=== PATIENT | female | born 1965 | race Two or more races ===

== ENCOUNTER 2022-10-09 14:29 | Emergency (ER) | payer OTHER ==
[~2022-10-09] VITALS: Ht 157.5 cm; Wt 72.2 kg
[2022-10-09 16:01] LABS: Urine Bacteria NONE SEEN /hpf (None Seen); Urine Blood Negative /uL (Negative); Urine Mucus FEW (None Seen); Urine WBC 3 /hpf (0 - 5)
[2022-10-09] MEDS ORDERED: CARB6.5S44 OT (17:34)
[2022-10-09] MEDS ORDERED: DICL50TA2 PO (17:34)
[2022-10-09] MEDS ORDERED: METO-281 PO (17:34)
[2022-10-09] MEDS ORDERED: NITR-87 PO (17:34)
[2022-10-09 17:55] VITALS: BP 135/77
== END 2022-10-09 17:55 | disposition home or self-care (01) ==
LOC: ER 14:29
DX: H92.01 Otalgia, right ear (principal); H61.21 Impacted cerumen, right ear; N39.0 Urinary tract infection, site not specified; R29.818 Other symptoms and signs involving the nervous system
CPT/HCPCS: 81001

== ENCOUNTER 2024-02-20 18:28 | Inpatient (IN) | payer MEDICAID, OTHER ==
[~2024-02-20] VITALS: Ht 157.5 cm; Wt 74.9 kg
[~2024-02-20 18:28] MED LIST: CARB6.5S44 OT; DICL50TA2 PO; METO-281 PO; NITR-87 PO
[2024-02-20] MEDS: PANTOPRAZOLE 40 MG/10 ML VIAL INJ IV ONE (19:40)
[2024-02-20] MEDS: ONDANSETRON HCL 4 MG/2 ML VIAL IV ONE (19:40)
[2024-02-20 19:48] LABS: Chloride 101 mmol/L (98-107); Potassium 3.7 mmol/L (3.5-5.1); Sodium 135 mmol/L (136-145)
[2024-02-20 19:49] LABS: Anion Gap 7 (5-15); Calcium 9.4 mg/dL (8.7-10.4); Carbon Dioxide 27 mmol/L (20-30)
[2024-02-20 19:54] LABS: BUN/Creatinine Ratio 15.1 (10.0-20.0); Blood Urea Nitrogen 11 mg/dL (9-23); Glucose 158 mg/dL (74-106); Lipase 39 U/L (12-53)
[2024-02-20 19:56] LABS: Basophils # (auto) 0 10 ^3/uL (0-0.2); Basophils % (auto) 0.2 % (0.0-2.0); Eosinophils # (auto) 0 10 ^3/uL (0-0.8); Eosinophils % (auto) 0.3 % (0.0-7.0); Hematocrit 41.2 % (36.0-46.0); Hemoglobin 14.1 g/dL (12.2-16.2); Lymphocytes # (auto) 1.3 10 ^3/uL (0.4-5.4); Lymphocytes % (auto) 15.6 % (10.0-50.0); Mean Corpuscular Hemoglobin 30.7 pg (28.0-32.0); Mean Corpuscular Hgb Conc. 34.2 g/dL (32.0-36.0); Mean Corpuscular Volume 89.8 fL (80.0-100.0); Monocytes # (auto) 0.6 10 ^3/uL (0-1.3); Monocytes % (auto) 6.9 % (0.0-12.0); Neutrophils # (auto) 6.5 10 ^3/uL (1.6-8.6); Nucleated Red Blood Cells % 0.1 %; Red Blood Cells 4.59 10^6/uL (4.0-5.20); Red Cell Distribution Width 13.5 % (11.8-14.3); White Blood Cell 8.5 10^3/uL (4.4-10.8)
[2024-02-20 20:02] LABS: Urine Bacteria FEW /hpf (None Seen); Urine Blood Negative /uL (Negative); Urine Clarity Clear (Clear); Urine Color Yellow (Yellow); Urine Mucus FEW (None Seen); Urine Protein, UAD TRACE (Negative); Urine Specific Gravity 1.023 (1.001-1.035); Urine Urobilinogen Normal (Negative); Urine WBC 2 /hpf (0 - 5)
[2024-02-20] MEDS: metroNIDAZOLE 500MG/100ML 100 ML IV ONE (20:20)
[2024-02-20] MEDS: CIPROFLOXACIN 400MG/200ML 200 ML IV ONE (20:25)
[2024-02-20] MEDS: ACETAMINOPHEN 325 MG TAB PO ONE (20:30)
[2024-02-20] MEDS ORDERED: MORPHINE SULFATE INJ 2 MG/ml SYRG IV PRN (21:30)
[2024-02-20] MEDS ORDERED: NITROGLYCERIN 0.4 MG SL TAB SL PRN (21:30)
[2024-02-20] MEDS ORDERED: TEMAZEPAM 15 MG CAP PO PRN (21:30)
[2024-02-20] MEDS: SODIUM CHLORIDE 0.9% 1,000 ML IV SCH (21:30)
[2024-02-20] MEDS ORDERED: ACETAMINOPHEN 325 MG TAB PO PRN (21:30)
[2024-02-20] MEDS: metroNIDAZOLE 500MG/100ML 100 ML IV SCH (22:00)
[2024-02-20] MEDS ORDERED: HYDR12.59 PO (22:03)
[2024-02-20] MEDS ORDERED: GABA-1250 PO (22:03)
[2024-02-20] MEDS: GABAPENTIN 300 MG CAP PO SCH (22:28)
[2024-02-21] VITALS (7 sets, daily range): BP systolic 99–117; BP diastolic 51–58; PULSE 66–82; RESP 15–18; TEMP 97.6–98.5; O2SAT 91–95
[2024-02-21 06:07] LABS: Basophils # (auto) 0 10 ^3/uL (0-0.2); Basophils % (auto) 0.1 % (0.0-2.0); Eosinophils # (auto) 0.1 10 ^3/uL (0-0.8); Eosinophils % (auto) 0.8 % (0.0-7.0); Hematocrit 37.4 % (36.0-46.0); Hemoglobin 12.4 g/dL (12.2-16.2); Lymphocytes # (auto) 1.7 10 ^3/uL (0.4-5.4); Lymphocytes % (auto) 22.7 % (10.0-50.0); Mean Corpuscular Hemoglobin 29.9 pg (28.0-32.0); Mean Corpuscular Hgb Conc. 33.2 g/dL (32.0-36.0); Monocytes # (auto) 0.6 10 ^3/uL (0-1.3); Monocytes % (auto) 8.7 % (0.0-12.0); Neutrophils % (auto) 67.7 % (37.0-80.0); Red Blood Cells 4.16 10^6/uL (4.0-5.20); Red Cell Distribution Width 13.6 % (11.8-14.3); White Blood Cell 7.3 10^3/uL (4.4-10.8)
[2024-02-21 06:31] LABS: Alanine Aminotransferase 17 U/L (7-40); Alkaline Phosphatase 44 U/L (46-116); Anion Gap 7 (5-15); BUN/Creatinine Ratio 13.2 (10.0-20.0); Blood Urea Nitrogen 9 mg/dL (9-23); Calcium 8.5 mg/dL (8.5-10.1); Carbon Dioxide 26 mmol/L (20-30); Chloride 107 mmol/L (98-107); Glucose 105 mg/dL (74-106); Potassium 3.9 mmol/L (3.5-5.1); Sodium 140 mmol/L (136-145)
[2024-02-21 06:32] LABS: Albumin 3.8 g/dL (3.2-4.8); Aspartate Aminotransferase 19 U/L (13-40)
[2024-02-21 06:33] LABS: Bilirubin, Total 0.4 mg/dL (0.2-1.0); Total Protein 6.3 g/dL (5.7-8.2)
[2024-02-21] MEDS: ACETAMINOPHEN 325 MG TAB PO ONE (10:00)
[2024-02-21] MEDS: KETOROLAC TROMETH 30 MG/ML 1ML VIAL IV ONE (10:00)
[2024-02-21] MEDS: ONDANSETRON HCL 4 MG/2 ML VIAL IV PRN (11:36)
[2024-02-21] MEDS: levoFLOXacin 500MG 100 ML IV SCH (11:36)
[2024-02-21] MEDS: MORPHINE SULFATE INJ 2 MG/ml SYRG IV PRN (11:37)
[2024-02-21] MEDS: hydroCHLOROthiazide 25 MG TAB PO SCH (11:40)
[2024-02-21] MEDS ORDERED: FAMO-12 PO (15:54)
[2024-02-21] MEDS: HYDROcodone-ACET 5/325MG TAB PO PRN (18:24)
[2024-02-22] VITALS (7 sets, daily range): BP systolic 99–113; BP diastolic 53–65; PULSE 63–75; RESP 16–20; TEMP 97.4–98.8; O2SAT 94–97
[2024-02-23 05:00] VITALS: BP 97/58; PULSE 67; RESP 18; TEMP 97.9; O2SAT 95
[2024-02-23 08:48] VITALS: BP 121/62; PULSE 63; RESP 16; TEMP 98.4; O2SAT 94
[2024-02-23 13:00] VITALS: BP 122/65; PULSE 66; RESP 16; TEMP 98.3; O2SAT 93
[2024-02-23 16:59] VITALS: BP 115/60; PULSE 72; RESP 18; TEMP 98; O2SAT 92
[2024-02-23 20:00] VITALS: BP 117/71; PULSE 78; RESP 17; TEMP 98.1; O2SAT 93
[2024-02-23 21:00] VITALS: BP 117/71; PULSE 78; RESP 17; TEMP 98.1; O2SAT 93
[2024-02-24 01:00] VITALS: BP 115/62; PULSE 70; RESP 17; TEMP 98.2; O2SAT 93
[2024-02-24 05:53] LABS: Basophils # (auto) 0 10 ^3/uL (0-0.2); Basophils % (auto) 0.6 % (0.0-2.0); Eosinophils # (auto) 0.1 10 ^3/uL (0-0.8); Eosinophils % (auto) 1.5 % (0.0-7.0); Hematocrit 39.6 % (36.0-46.0); Hemoglobin 13.5 g/dL (12.2-16.2); Lymphocytes # (auto) 2.3 10 ^3/uL (0.4-5.4); Lymphocytes % (auto) 40.7 % (10.0-50.0); Mean Corpuscular Hemoglobin 30.6 pg (28.0-32.0); Mean Corpuscular Volume 89.7 fL (80.0-100.0); Monocytes # (auto) 0.4 10 ^3/uL (0-1.3); Monocytes % (auto) 6.7 % (0.0-12.0); Neutrophils # (auto) 2.9 10 ^3/uL (1.6-8.6); Neutrophils % (auto) 50.5 % (37.0-80.0); Nucleated Red Blood Cells % 0.1 %; Red Blood Cells 4.41 10^6/uL (4.0-5.20); White Blood Cell 5.7 10^3/uL (4.4-10.8)
[2024-02-24 06:00] LABS: Chloride 107 mmol/L (98-107); Potassium 4.1 mmol/L (3.5-5.1); Sodium 140 mmol/L (136-145)
[2024-02-24 06:01] LABS: Anion Gap 8 (5-15); Calcium 9.5 mg/dL (8.5-10.1); Carbon Dioxide 25 mmol/L (20-30)
[2024-02-24 06:06] LABS: BUN/Creatinine Ratio 11.6 (10.0-20.0); Blood Urea Nitrogen 8 mg/dL (9-23); Glucose 100 mg/dL (74-106)
[2024-02-24 08:47] VITALS: BP 123/72; PULSE 71; RESP 19; TEMP 97.8; O2SAT 94
[2024-02-24] MEDS ORDERED: DOCU-94 PO (10:51)
[2024-02-24] MEDS ORDERED: METR-344 PO (10:51)
[2024-02-24] MEDS ORDERED: LEVO500T91 PO (10:51)
[2024-02-24 12:42] VITALS: BP 115/64; PULSE 82; RESP 19; TEMP 98.5; O2SAT 97
[2024-02-24 13:31] VITALS: BP 115/64; PULSE 82; RESP 19; TEMP 98.5; O2SAT 97
== END 2024-02-24 14:39 | disposition home or self-care (01) | DRG 244 ==
LOC: ER 18:28 → TELE 22:02 → TELE-CENTR 02-21 12:56 → CENTRAL 02-21 23:39
PROVIDERS: ADMIT Internal Medicine; ATTEND Internal Medicine
DX: K57.32 Diverticulitis of large intestine without perforation or abscess without bleeding (principal); E11.65 Type 2 diabetes mellitus with hyperglycemia; K21.9 Gastro-esophageal reflux disease without esophagitis; I10 Essential (primary) hypertension; K44.9 Diaphragmatic hernia without obstruction or gangrene; Z98.891 History of uterine scar from previous surgery; Z79.899 Other long term (current) drug therapy
CPT/HCPCS: 36415; 74176; 80048; 80053; 81001; 83036; 83690; 85025; 96365; 96368; 96375; C9113; G0378; J1956; J2405; J3490

== ENCOUNTER 2025-09-22 11:33 | Emergency (ER) | payer MEDICAID ==
[~2025-09-22] VITALS: Ht 157.5 cm; Wt 76.1 kg
[~2025-09-22 11:33] MED LIST changes: -CARB6.5S44 OT; -DICL50TA2 PO; +DOCU-94 PO; +LEVO500T91 PO; -METO-281 PO; +METR-344 PO; -NITR-87 PO
--- NOTE | 2025-09-22 12:41 | ED.PDOC ---
History of Present Illness(SKN HPI Comments 59-year-old female presents to the ER with a prior MHx of arthritis in the chief complaint of an allergic reaction. The patient reports on having had a headache for the past few days associated with a a rash on the face, chest and back due from a possible allergic reaction which started yesterday associated with the itchiness. The patient notes on being lose to shrimp and lobster but states on not having any recently. The patient notes on having right shoulder pain. Denies any other symptoms at this time. Chief Complaint: Allergic Reaction Time Seen by MD: 12:30 History of Present Illness: Nurses Notes, Medications, Allergies Allergies: Coded Allergies: Shellfish Allergy (Verified Allergy, Unknown, 02/21/24) Home Meds Active Scripts Cetirizine Hcl (Cetirizine Hcl) 5 Mg Tab, 10 MG PO DAILY for 10 Days, #20 TAB 0 Refills Prov:STEFFI IYER NP 09/22/25 Diphenhydramine Hcl (BENADRYL CAPSULE) 25 Mg Cp, 25 MG PO Q8HP PRN for 10 Days, #30 CAP 0 Refills Prov:STEFFI IYER NP 09/22/25 Methylprednisolone (Medrol Dosepak) 4 Mg Santiago, 4 MG PO UD for 7 Days, #21 TAB 0 Refills UAD Prov:STEFFI IYER NP 09/22/25 Levofloxacin Hemihydrate (LEVAQUIN 500 MG) 500 Mg Tab, 1 TAB PO DAILY, #7 TAB Prov:ELVIS DAWSON MD 02/24/24 Levofloxacin Hemihydrate (LEVAQUIN 500 MG) 500 Mg Tab, 1 TAB.CHEW PO DAILY, #7 TAB Prov:ELVIS DAWSON MD 02/24/24 Metronidazole (Flagyl) 500 Mg Tab, 500 MG PO TID for 7 Days, #21 TAB Prov:ELVIS DAWSON MD 02/24/24 Docusate Sodium (Colace) 100 Mg Cap, 1 CAP PO BID, #60 CAP 2 Refills Prov:ELVIS DAWSON MD 02/24/24 Information Source: Patient Mode of Arrival: Ambulatory Severity: Moderate Timing: Days Duration: Since onset, Days Prehospital treatment: None Location: Back, Chest, Face Mechanism: Spontaneous Onset Developed: Rash Object: None Condition of Object: None Wound Type: None History of: None Associated Signs and Symptoms: None Past Medical History PAST MEDICAL HISTORY: Arthritis, DM, GERD Surgical History: BTL, UTILIZATION REVIEW SPECIALIST History: No Pertinent UTILIZATION REVIEW SPECIALIST History Family History Family History: Reviewed,noncontributory to illness, Unknown Social History Smoker: Non-Smoker Alcohol: Denies ETOH Use Drugs: Denies Drug Use Lives In: Home Constitutional: denies: chills, diaphoresis, fatigue, fever, malaise, sweats, weakness, others EENTM: denies: blurred vision, double vision, ear bleeding, ear discharge, ear drainage, ear pain, ear ringing, eye pain, eye redness, hearing loss, mouth pain, mouth swelling, nasal discharge, nose bleeding, nose congestion, nose pain, photophobia, tearing, throat pain, throat swelling, voice changes, others Respiratory: denies: cough, hemoptysis, orthopnea, SOB at rest, shortness of breath, SOB with excertion, stridor, wheezing, others Cardiovascular: denies: chest pain, dizzy spells, diaphoresis, Dyspnea on exertion, edema, irregular heart beat, left arm pain, lightheadedness, palpitations, PND, syncope, others Gastrointestinal: denies: abdomen distended, abdominal pain, blood streaked bowels, constipated, diarrhea, dysphagia, difficulty swallowing, hematemesis, melena, nausea, poor appetite, poor fluid intake, rectal bleeding, rectal pain, vomiting, others Genitourinary: denies: abnormal vagina bleeding, burning, dyspareunia, dysuria, flank pain, frequency, hematuria, incontinence, pain, , vagina discharge, urgency, others Neurological: reports: headache; denies: dizziness, fainting, left sided numbness, left sided weakness, numbness, paresthesia, pre-existing deficit, right sided numbness, right sided weakness, seizure, speech problems, tingling, tremors, weakness, others Musculoskeletal: denies: back pain, gout, joint pain, joint swelling, muscle pain, muscle stiffness, neck pain, others Integumetry: reports: rash; denies: bruises, change in color, change in hair/nails, dryness, laceration, lesions, lumps, wounds, others Allergic/Immunocompromised: denies: Difficulty Healing, Frequent Infections, Hives, Itching, others Hematologic/Lymphatic: denies: anemia, blood clots, easy bleeding, easy bruising, swollen glands, others Endocrine: denies: excessive hunger, excessive sweating, excessive thirst, excessive urination, flushing, intolerance to cold, intolerance to heat, unexplained weight gain, unexplained weight loss, others Psychiatric: denies: anxiety, bipolar disorder, depression, hopeless, panic disorder, schizophrenia, sleepless, suicidal, others All Other Systems: Reviewed and Negative Physical Exam Exam Comments Mild scattered hives to the anterior chest wall General Appearance: No Apparent Distress, Normal HEENT: Normal ENT Inspection, Pharynx Normal, TMs Normal Neck: Full Range of Motion, Non-Tender, Normal, Normal Inspection Respiratory: Chest Non-Tender, Lungs Clear, No Accessory Muscle Use, No Respiratory Distress, Normal Breath Sounds Cardiovascular: No Edema, No JVD, No Murmur, No Gallop, Normal Peripheral Pulses, Regular Rate/Rhythm Breast Exam: Deferred Gastrointestinal: No Organomegaly, Non Tender, No Pulsatile Mass, Normal Bowel Sounds, Soft Genitalia: Deferred Pelvic: Deferred Rectal: Deferred Extremities: No calf tenderness, Normal capillary refill, Normal inspection, Normal range of motion, Non-tender, No pedal edema Musculoskeletal : Apperance: Normal Neurologic: Alert, jacquard lace weaver II-XII nml as Tested, No Motor Deficits, Normal Affect, Normal Mood, No Sensory Deficits Cerebellar Function: Normal Reflexes: Normal Skin: Dry, Normal Color, Warm Lymphatic: No Adenopathy Was a procedure done? Was a procedure done?: No Differential Diagnosis (INTG) Differential Diagnosis: Puncture Wound, Other X-Ray, Labs, Meds, VS Vital Signs Date Time Temp Pulse Resp B/P (MAP) Pulse Ox O2 Delivery O2 Flow Rate FiO2 09/22/25 12:45 96 20 94 Room Air 09/22/25 12:45 98.4 96 20 137/85 (102) 94 98.4 09/22/25 11:36 98.4 96 20 137/85 94 98.4 X-Ray, Labs, Meds, VS Comment Patient arrives alert and oriented, ABC's intact, afebrile, vital signs stable, saturating well in room air Diagnostic imaging ordered by me and results interpreted by radiology : X-ray of the right shoulder Patient was given: Allergic reaction cocktail, Tylenol. Tolerated medications with no adverse reaction. Exam and history consistent with uticaria/allergic reaction Dexamethasone 10 mg IM ordered for symptoms Patient tolerated well, no adverse drug reactions noted No signs of anaphylaxis or angioedema Reviewed potential triggers, including viral infection, food or environmental exposures, new medications (NSAIDs progesterone), insect bites latex, cold exposures, sunlight No joint pains, fevers or lymphadenopathy to consider serum sickness or SLE Informed patient second encounter with allergy could cause more severe and life- threatening symptoms such as shortness of breath and difficulty breathing Patient verbalized understanding EpiPen prescribed. Education provided on possible side effects of medication Recommended antihistamines as needed ED precautions discussed including angioedema, vomiting, abdominal pain or difficulty breathing Additional MDM Review of External, Non-ED records: External records reviewed. Discussion with independent historian (EMS, family) history obtained from the patient/parents (if applicable) at bedside Chronic conditions affecting care: None Social determinants of health affecting care: None Consideration of admission (observation or admission): I considered escalation of care to admission for this patient, however given the reassuring workup, the patient is safe for outpatient management. Discussion with the Radiology: No Tests considered but not performed: Prescription medication considered but not given: 12 lead EKG interpretation: Time of 1ST Reevaluation: 13:00 Reevaluation 1ST: Unchanged Patient Education/Counseling: Diagnosis, Treatment, Prognosis Family Education/Counseling: No Family Present SEPSIS Sepsis Screen Date sepsis recognized/suspect: Sep 22, 2025 Time Sepsis recognized/suspect: 1136 Recent Procedure: No On Antibiotic Therapy: No Respiratory Rate >20: No Heart Rate >90: No Temp<36 C (96.8 F) or >38.3 C: No SBP <90 or MAP <65 mmHG: No New Acute Mental Status Change: No Is the patient on CPAP, BIPAP,: No Physician Orders R Shoulder 2+ View Xray (09/22/25 12:36) Vital Signs Date Time Temp Pulse Resp B/P (MAP) Pulse Ox O2 Delivery O2 Flow Rate FiO2 09/22/25 12:45 96 20 94 Room Air 09/22/25 12:45 98.4 96 20 137/85 (102) 94 98.4 09/22/25 11:36 98.4 96 20 137/85 94 98.4 Departure 1 Departure Time of Disposition: 13:41 Impression: Primary Impression: Allergic reaction Qualified Codes: T78.40XA - Allergy, unspecified, initial encounter Additional Impression: Right shoulder pain Qualified Codes: M25.511 - Pain in right shoulder Disposition: HOME / SELF CARE / HOMELESS Condition: Stable e-Prescriptions Cetirizine Hcl (Cetirizine Hcl) 5 Mg Tab 10 MG PO DAILY for 10 Days, #20 TAB 0 Refills Prov: STEFFI IYER NP 09/22/25 Diphenhydramine Hcl (BENADRYL CAPSULE) 25 Mg Cp 25 MG PO Q8HP PRN for 10 Days, #30 CAP 0 Refills Prov: STEFFI IYER NP 09/22/25 Methylprednisolone (Medrol Dosepak) 4 Mg Santiago 4 MG PO UD for 7 Days, #21 TAB 0 Refills UAD Prov: STEFFI IYER NP 09/22/25 Critical Care Note Critical Care Time?: No Stability Stability form required: No Heart Score Heart Score: Heart Score Response (Comments) Value History N/A 0 EKG N/A 0 Age N/A 0 Risk Factors N/A 0 Troponin N/A 0 Total 0 I personally scribed for STEFFI IYER NP ([email or web address]) on 09/22/25 at 12:40. Electronically submitted by John Mosqueda ([email or web address]). STEFFI IYER NP Sep 22, 2025 12:40
[2025-09-22 12:45] VITALS: BP 137/85; PULSE 96; RESP 20; TEMP 98.4; O2SAT 94
[2025-09-22] MEDS: ACETAMINOPHEN 325 MG TAB PO ONE (13:07)
[2025-09-22] MEDS: FAMOTIDINE 20 MG TAB PO ONE (13:07)
[2025-09-22] MEDS: methylPREDNISolone SOD SUCC 125 MG/2 ML VL IM ONE (13:07)
--- NOTE | 2025-09-22 13:22 | DVH ---
CLINICAL HISTORY: pains x months TECHNIQUE: 3 views of the right shoulder were obtained. COMPARISON: None FINDINGS: No acute fracture or dislocation is seen. No soft tissue abnormality is evident. There are no significant degenerative changes. IMPRESSION: NO ACUTE RADIOGRAPHIC ABNORMALITY OF THE RIGHT SHOULDER.
[2025-09-22] MEDS ORDERED: METH4PAK PO (13:43)
[2025-09-22] MEDS ORDERED: CETI5TAB6 PO (13:43)
[2025-09-22] MEDS ORDERED: DIPH25CA51 PO (13:43)
== END 2025-09-22 13:51 | disposition home or self-care (01) ==
LOC: ER 11:33
DX: T78.49XA Other allergy, initial encounter (principal); M25.511 Pain in right shoulder; E11.9 Type 2 diabetes mellitus without complications; M19.90 Unspecified osteoarthritis, unspecified site; K21.9 Gastro-esophageal reflux disease without esophagitis; Z79.899 Other long term (current) drug therapy; Z98.890 Other specified postprocedural states; Z98.51 Tubal ligation status; X58.XXXA Exposure to other specified factors, initial encounter
CPT/HCPCS: 73030; 96372; 99284; J2919